=== PATIENT | male | born 1975 | race Caucasian/White ===

== ENCOUNTER 2020-11-18 04:35 | Emergency (ER) | payer MEDICAID ==
[~2020-11-18] VITALS: Ht 175.3 cm; Wt 70.3 kg
[2020-11-18 04:35] VITALS: BP 140/77
--- NOTE | 2020-11-18 04:44 | NUR ---
PATIENT IS [facility] C/O [employer] USE. PATIENT IS ALERT AND ORIENTED TO TIME, PLACE, PERSON, DATE (x4). AMBULATES WITH A STEADY GAIT. PATIENT STATES HE WILL TAKE BUS PASS. PATIENT IS BREATHING EVENLY AND UNLABORED ON ROOM AIR. CONNECTED TO THE MONITOR.
--- NOTE | 2020-11-18 04:46 | NUR ---
Patient does not wish to proceed with medical care recommended by Dr. Heller. Patient given information related to possible complications, up to and including , which could occur as a result of leaving the hospital at this time. Patient verbalizes understanding of risks involved due to leaving against medical advice. Patient has signed AMA form.
== END 2020-11-18 04:47 | disposition left against medical advice (07) ==
LOC: ER 04:38
DX: T40.411A Poisoning by fentanyl or fentanyl analogs, accidental (unintentional), initial encounter (principal); R94.31 Abnormal electrocardiogram [ECG] [EKG]; Z88.8 Allergy status to other drugs, medicaments and biological substances; Y92.89 Other specified places as the place of occurrence of the external cause